=== PATIENT | female | born 1955 | race Caucasian/White ===

== ENCOUNTER 2017-05-14 06:06 | Emergency (ER) | payer OTHER ==
[2017-05-14] MEDS ORDERED: ONDANSETRON HCL 4 MG/2 ML VIAL ONE (06:41)
[2017-05-14] MEDS ORDERED: KETOROLAC TROMETHAMINE 30 MG/ML VIAL ONE (06:57)
[2017-05-14] MEDS ORDERED: NORMAL SALINE 100 ML IV ONE (08:25)
[2017-05-14] MEDS ORDERED: DEXAMETHASONE 10 MG/ML VIAL ONE (08:25)
--- NOTE | 2017-05-14 09:24 | ER NURSING DOCUMENTATION ---
Nurse's Notes [facility] Name:Cathleen Silva Age:61 yrs Sex:Female :1955 Arrival Date:05/14/2017 Time:06:06 Bed4 Private MD:Physician, No Diagnosis:Vomiting - Dehydration;Diarrhea;Acute Headache Presentation: 05/14 06:09 Acuity: NURYS 3 lb 06:29 Presenting complaint: Patient states: n/v/d since 1 am. c/o cough, sinus headache. up lb to altitude on tuesday. Transition of care: patient was not received from another setting of care. Notified ED Physician of Dr. Castaneda notified. :29 Method Of Arrival: Walk In lb Triage Assessment: 06:32 General: Appears distressed, Behavior is appropriate for age. Pain: Complains of pain lb in face Pain does not radiate. Pain currently is 8 out of 10 on a pain scale. Quality of pain is described as pressure. EENT: No deficits noted. Neuro: No deficits noted. Cardiovascular: No deficits noted. Respiratory: No deficits noted. GI: Abdomen is non- distended Bowel sounds present X 4 quads. Reports diarrhea, nausea, vomiting. Historical: - Allergies: No known drug Allergies; - Home Meds: 1. None - PMHx: None; - PSHx: Cholecysectomy; TUBAL LIGATION; - Tetanus: > 10 years. - Ebola Screening: : Patient denies exposure to infectious person. Patient denies travel to an Ebola-affected area in the 21 days before illness onset. . - Immunization history: Flu Vaccine < 1 year. - Social history: Smoking status: Patient states was never smoker of tobacco. Patient uses alcohol occasionally. Screenin:34 Infectious Disease Risk None. Abuse screen: Denies threats or abuse. Denies injuries lb from another. Nutritional screening: No deficits noted. Assessment: 06:34 General: Appears distressed, Behavior is appropriate for age. GI: Abdomen is non- lb distended Bowel sounds present X 4 quads. Reports diarrhea, nausea, vomiting. Vital Signs: 06:33 BP 130 / 61; Pulse 112; Resp 16; Temp 97.3(TE); Pulse Ox 94% on R/A; Weight 81.65 kg; lb Height 5 ft. 7 in. (170.18 cm); Pain 8/10; 06:33 Body Mass Index 28.19 (81.65 kg, 170.18 cm) lb ED Course: 06:08 Patient arrived in ED. ma1 06:08 Physician, No is Private Physician. ma1 06:09 Brionna Hodges is Primary Nurse. lb 06:19 Triage completed. lb 06:34 Valuables Remains with patient Patient has correct armband on for positive lb identification. Placed in gown. Bed in low position. Call light in reach. Side rails up X 1. 06:38 Cleveland Castaneda MD is Attending Physician. sc 06:49 Inserted saline lock: 20 gauge in left antecubital area and blood collected. fc 07:02 Primary Nurse role handed off by Brionna Hodges tg 07:02 Ruben Fatima, HILARY is Primary Nurse. tg 07:02 Report received from hilary franco. tg 09:22 Discontinued IV intact, bleeding controlled, pressure dressing applied, No sc1 redness/swelling at site. Administered Medications: 06:35 Drug: Zofran 4 mg; Route: IVP; Infused Over: 2 mins; Site: left antecubital; fc 07:14 Follow up: Response: No adverse reaction tg 06:35 Drug: NS 0.9% 1000 ml; Route: IV; Rate: bolus; Site: left antecubital; fc 07:13 Follow up: IV Status: Completed infusion; IV Intake: 1000ml tg 06:47 Drug: Toradol 30 mg; Route: IVP; Site: left antecubital; fc 07:14 Follow up: Response: No adverse reaction tg 07:15 Drug: NS 0.9% 1000 ml; Route: IV; Rate: bolus; Site: left antecubital; Delivery: tg [place] Tubing; 09:20 Follow up: IV Status: Completed infusion; IV Intake: 1000ml sc1 08:17 Drug: Dexamethasone 10 mg; Route: IVP; Site: left antecubital; tg Intake: 07:13 IV: 1000ml; Total: 1000ml. tg 09:20 IV: 1000ml; Total: 2000ml. sc1 Outcome: 09:07 Discharge ordered by . 09:22 Discharged to home ambulatory. sc1 09:22 Condition: stable 09:22 Discharge instructions given to patient, Instructed on discharge instructions, follow up and referral plans. medication usage, Demonstrated understanding of instructions, medications, Prescriptions given X 2. 09:23 Patient left the ED. sc1 Signatures: Ruben Fatima RN RN tg Tia Curry RN RN sc1 Cleveland Castaneda MD MD sc Meyer, John, MD MD jm collins, floyd fc Bollock, Lynda lb Addison, Melissa [facility]
--- NOTE | 2017-05-14 09:24 | ER PHYSICIAN DOCUMENTATION ---
Physician Documentation [facility] Name:Cathleen Silva Age:61 yrs Sex:Female :1955 Arrival Date:05/14/2017 Time:06:06 Bed4 Private MD:Physician, No ED Cleveland Brandt Disposition: 05/14/17 09:07 Discharged to Home/Self Care. Impression: Vomiting - Dehydration, Diarrhea, Acute Headache. - Condition is Good. - Discharge Instructions: VOMITING (6y-Adult). - Prescriptions for Tussionex Pennkinetic ER 8- 10 mg/5 mL Oral - take 5 milliliter by ORAL route every 12 hours As needed; 60 milliliter. Zofran 4 mg Oral Tablet - take 1-2 tablet by ORAL route every 4-6 hours As needed; 10 tablet. - Medical Reconciliation form form. - Follow up: Emergency Department; When: As needed; Reason: Continuance of care. - Problem is new. - Symptoms have improved. HPI: 05/14 07:04 This 61 yrs old Female presents to ER via Walk In with complaints of sc Nausea/Vomiting/Diarrhea, Headache. 07:04 The patient presents to the emergency department with nausea, with vomiting, with sc diarrhea, without any complaints of abdominal pain. Onset: The symptom(s)/episode began/occurred at 01:00. Possible causes: unknown. Associated signs and symptoms: Pertinent positives: sinusitis and sore throat from post nasal drip x 3 days. Severity of symptoms: At their worst the symptoms were moderate. 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 Historical: - Allergies: No known drug Allergies; - Home Meds: 1. None - PMHx: None; - PSHx: Cholecysectomy; TUBAL LIGATION; - Tetanus: > 10 years. - Ebola Screening: : Patient denies exposure to infectious person. Patient denies travel to an Ebola-affected area in the 21 days before illness onset. . - Immunization history: Flu Vaccine < 1 year. - Social history: Smoking status: Patient states was never smoker of tobacco. Patient uses alcohol occasionally. ROS: 07:09 Constitutional: Negative for fever, chills, and weight loss. sc Eyes: Negative for injury, pain, redness, and discharge. Neck: Negative for injury, pain, and swelling. Cardiovascular: Negative for chest pain, palpitations, and edema. Respiratory: Negative for shortness of breath, cough, wheezing, and pleuritic chest pain. Back: Negative for injury and pain. MS/Extremity: Negative for injury and deformity. 07:09 Skin: Negative for injury, rash, and discoloration. ia 07:09 ENT: Positive for sinus congestion, sore throat. 07:09 Abdomen/GI: Positive for nausea, vomiting, diarrhea, Negative for abdominal pain, hematemesis, black/tarry stool. Exam: Head/Face: Normocephalic, atraumatic. Eyes: Pupils equal round and reactive to light, extra-ocular motions intact. Lids and lashes normal. Conjunctiva and sclera are non-icteric and not injected. Cornea within normal limits. Periorbital areas with no swelling, redness, or edema. Neck: Trachea midline, no thyromegaly or masses palpated, and no cervical lymphadenopathy. Supple, full range of motion without nuchal rigidity, or vertebral point tenderness. No meningismus. Chest/axilla: Normal chest wall appearance and motion. Nontender with no deformity. No lesions are appreciated. Respiratory: Lungs have equal breath sounds bilaterally, clear to auscultation and percussion. No rales, rhonchi or wheezes noted. No increased work of breathing, no retractions or nasal flaring. Back: No spinal tenderness. No costovertebral tenderness. Full range of motion. 07:09 Neuro: Awake and alert, GCS 15, oriented to person, place, time, and situation. ia Cranial nerves II-XII grossly intact. Motor strength 5/5 in all extremities. Sensory grossly intact. Cerebellar exam normal. Normal gait. 07:09 Constitutional: The patient appears alert, awake. 07:09 ENT: Mouth: Oral mucosa: dry. 07:09 Cardiovascular: Rate: normal, Rhythm: regular. 07:09 Abdomen/GI: Inspection: abdomen appears normal, Bowel sounds: normal, Palpation: abdomen is soft and non-tender. 07:09 Skin: Turgor: is poor. Vital Signs: 06:33 BP 130 / 61; Pulse 112; Resp 16; Temp 97.3(TE); Pulse Ox 94% on R/A; Weight 81.65 kg; lb Height 5 ft. 7 in. (170.18 cm); Pain 8/10; 06:33 Body Mass Index 28.19 (81.65 kg, 170.18 cm) lb MDM: 06:29 Patient medically screened. ia 07:10 Differential diagnosis: viral gastroenteritis, gastroenteritis. Data reviewed: vital sc signs, nurses notes, and as a result, I will continue to observe the patient, administer IV fluids, NS bolus. Transition of care: After a detail discussion of the patient's case, care is transferred to Venkata Rebolledo MD. 08:11 Counseling: I had a detailed discussion with the patient and/or guardian regarding: the jm historical points, exam findings, and any diagnostic results supporting the discharge/admit diagnosis, the need for outpatient follow up, with the patient's primary care provider. Medication response: The patient's symptoms have improved. ED course: Pt feels much better after meds and IVF. Pt requesting a steroid shot for her sore throat and GAGNON. I gave her Decadron. Pt's labs WNL. I feel comfortable sending home w hedy, so she can stay on top of her GAGNON and replace what she loses in diarrhea. Pt understands plan. DC home. . 05/14 06:35 Order name: Iv Saline Lock; Complete Time: 06:47 lb Dispensed Medications: 06:35 Drug: Zofran 4 mg; Route: IVP; Infused Over: 2 mins; Site: left antecubital; fc 07:14 Follow up: Response: No adverse reaction tg 06:35 Drug: NS 0.9% 1000 ml; Route: IV; Rate: bolus; Site: left antecubital; fc 07:13 Follow up: IV Status: Completed infusion; IV Intake: 1000ml tg 06:47 Drug: Toradol 30 mg; Route: IVP; Site: left antecubital; fc 07:14 Follow up: Response: No adverse reaction tg 07:15 Drug: NS 0.9% 1000 ml; Route: IV; Rate: bolus; Site: left antecubital; Delivery: tg [place] Tubing; 09:20 Follow up: IV Status: Completed infusion; IV Intake: 1000ml sc1 08:17 Drug: Dexamethasone 10 mg; Route: IVP; Site: left antecubital; tg Signatures: Ruben Fatima RN RN Tia Curry RN RN [facility] ChewCleveland MD MD sc Meyer, John, MD MD jm collins, floyd fc Bollock, Lynda lb
== END 2017-05-14 09:24 | disposition home or self-care (01) ==
LOC: ER 06:06
DX: E86.0 Dehydration (principal); R11.2 Nausea with vomiting, unspecified; R19.7 Diarrhea, unspecified; R51 Headache; J32.9 Chronic sinusitis, unspecified; J02.9 Acute pharyngitis, unspecified; Z85.72 Personal history of non-Hodgkin lymphomas
CPT/HCPCS: 96361; 96374; 96375; 99284; J1100; J1885; J2405